=== PATIENT | male | born 1975 | race Two or more races ===

== ENCOUNTER 2024-05-08 12:00 | Emergency (ER) | payer SELFPAY ==
[~2024-05-08] VITALS: Ht 185.4 cm; Wt 93.8 kg
[2024-05-08 12:00] VITALS: BP 143/92; PULSE 61; RESP 16; O2SAT 100
== END 2024-05-08 16:48 | disposition left against medical advice (07) ==
LOC: ER 12:00
DX: S80.921A Unspecified superficial injury of right lower leg, initial encounter (principal); Z53.21 Procedure and treatment not carried out due to patient leaving prior to being seen by health care provider; X58.XXXA Exposure to other specified factors, initial encounter; Y93.89 Activity, other specified; Y92.89 Other specified places as the place of occurrence of the external cause; Y99.8 Other external cause status